=== PATIENT | male | born 1980 | race Caucasian/White ===

== ENCOUNTER 2017-06-03 22:44 | Emergency (ER) | payer SELFPAY ==
[~2017-06-03] VITALS: Ht 177.8 cm; Wt 82.0 kg
[2017-06-03 22:45] VITALS: BP 149/82; PULSE 95; RESP 16; TEMP 98.5; O2SAT 99
== END 2017-06-04 00:27 | disposition left against medical advice (07) ==
LOC: NED 22:44
DX: Z53.21 Procedure and treatment not carried out due to patient leaving prior to being seen by health care provider (principal)
CPT/HCPCS: 99281